=== PATIENT | female | born 2000 | race Caucasian/White ===

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

== ENCOUNTER 2021-02-24 13:07 | Emergency (ER) | payer MEDICAID ==
[~2021-02-24] VITALS: Ht 160 cm; Wt 63.7 kg
[2021-02-24 13:18] LABS: BILIRUBIN,URINE NEGATIVE (NEGATIVE); CLARITY,URINE TURBID; COLOR,URINE YELLOW; GLUCOSE, URINE (UA) NEGATIVE (NEGATIVE); KETONES,URINE NEGATIVE (NEGATIVE); LEUKOCYTE ESTERASE ,URINE NEGATIVE (NEGATIVE); NITRITE,URINE NEGATIVE (NEGATIVE); PROTEIN,URINE NEGATIVE (NEGATIVE)
[2021-02-24] MEDS ORDERED: NS IV 1000 ML 1,000 ML IV STA (13:22)
[2021-02-24] MEDS ORDERED: PANTOPRAZOLE 40 MG (PROTONIX) VIAL IV STA (13:22)
[2021-02-24] MEDS ORDERED: KETOROLAC 30 MG/ML VIAL IVP STA (13:22)
--- NOTE | 2021-02-24 13:28 | ED GI ---
General Chief Complaint: Abdominal/GI Problems Stated Complaint: LUNG PAIN; VOMITING Source of Information: Patient NPO Since: 9 am History of Present Illness Date Seen by Provider: Feb 24, 2021 Time Seen by Provider: 13:11 Initial Comments 20-year-old female presenting with complaints of intermittent nausea and vomiting since Monday. She states that she has seen coffee-ground appearing emesis. She denies black tarry stools. She last had a bowel movement yesterday and reports it was normal. She denies any diarrhea. She also reports tightness in her abdomen. She states that the tightness and pain seems to start around the area where she has a incision and then radiates or moves up her abdomen to the base of her lungs and chest. She states nothing seems to trigger the symptoms. They seem to happen randomly. She is still able to eat and drink. No certain foods or drinks trigger her symptoms. She last ate at 9 AM. She denies pain or burning with urination. She states she is having dark-colo red spotting and has some irregular periods but she does have the Nexplanon in her left arm for control. She had this implanted around December 2019 after her last delivery. She states she has not felt quite right since she had that implanted. Timing/Duration: 3-4 Days Severity/Quality: Moderate, Other (Tightness) Location: Generalized Abdomen Activities at Onset: None Associated Symptoms: No Back Pain, No Chest Pain, No Diaphoresis, No Fever/Chills, No Fatigue, No Headache, No Heartburn; Nausea/Vomiting; No Rash, No Shortness of Air, No Swelling/Mass in Abdomen, No Syncope, No Weakness Allergies and Home Medications Allergies Coded Allergies: No Known Drug Allergies (Unverified , 04/24/19) Patient Home Medication List Home Medication List Reviewed: Yes Dicyclomine HCl (Dicyclomine HCl) 10 Mg Capsule, 10 MG PO Q6H PRN for abdominal pain/nausea Prescribed by: SAMIRA SHEEHAN on 02/24/21 2614 Pantoprazole Sodium (Pantoprazole Sodium) 40 Mg Tablet.dr, 40 MG PO DAILY Prescribed by: SAMIRA SHEEHAN on 02/24/21 150 Review of Systems Review of Systems Constitutional: No chills, No diaphoresis; dizziness; No fever EENTM: No Blurred Vision, No Double Vision Respiratory: Denies Cough, Denies Shortness of Air Cardiovascular: Denies Chest Pain, Denies Palpitations Gastrointestinal: Denies Abdomen Distended; Abdominal Pain (Tight sensation in her abdomen); Denies Blood Streaked Stools, Denies Constipated, Denies Diarrhea, Denies Difficulty Swallowing; Nausea; Denies Poor Appetite, Denies Poor Fluid Intake, Denies Rectal Bleeding; Vomiting Genitourinary: Denies Burning, Denies Discharge, Denies Drainage, Denies Frequency, Denies Pain; Other (Spotting a dark-colored blood) Musculoskeletal: no symptoms reported Skin: no symptoms reported Psychiatric/Neurological: Anxiety Past Nfxvdwd-Mscacc-Ekcdid Hx Patient Social History Tobacco Use?: No Use of E-Cig and/or Vaping dev: No Substance use?: No Alcohol Use?: No Pt feels they are or have been: No Seasonal Allergies Seasonal Allergies: No Past Medical History Surgeries: Yes Section Respiratory: No Cardiac: No Neurological: No Genitourinary: No Gastrointestinal: No Musculoskeletal: No Endocrine: No HEENT: No Cancer: No Psychosocial: No Integumentary: No Blood Disorders: No Physical Exam Vital Signs Vital Signs - First Documented 02/24/21 13:10 Temp 36.3 Pulse 86 Resp 16 B/P (MAP) 132/88 (103) Pulse Ox 100 O2 Delivery Room Air Capillary Refill : Height/Weight/BMI Height: '" Weight: lbs. oz. kg; 31.00 BMI Method: General Appearance: WD/WN, no apparent distress HEENT: PERRL/EOMI, normal ENT inspection, pharynx normal Neck: non-tender, full range of motion, supple, normal inspection Respiratory: chest non-tender, lungs clear, normal breath sounds Cardiovascular: normal peripheral pulses, regular rate, rhythm Gastrointestinal: soft, no pulsatile mass, abnormal bowel sounds (Hypoactive); No distended, No guarding, No rebound; tenderness (Patient reports tightness in her abdomen with even light palpation. This is diffuse throughout her abdomen); No hernia, No mass Rectal: deferred Extremities: normal range of motion, non-tender, no calf tenderness, normal capillary refill Neurologic/Psychiatric: overseamer II-XII nml as tested, alert, oriented x 3 Skin: normal color, warm/dry Images 1 - Diffuse abdomen tenderness to palpation that is described as tightness by the patient. Progress/Results/Core Measures Results/Orders Lab Results Laboratory Tests Test 02/24/21 13:10 02/24/21 13:25 Range/Units Urine Color YELLOW Urine Clarity TURBID Urine pH 8.0 5-9 Urine Specific [place] 1.020 1.016-1.022 Urine Protein NEGATIVE NEGATIVE Urine Glucose (UA) NEGATIVE NEGATIVE Urine Ketones NEGATIVE NEGATIVE Urine Nitrite NEGATIVE NEGATIVE Urine Bilirubin NEGATIVE NEGATIVE Urine Urobilinogen 0.2 < = 1.0 MG/DL Urine Leukocyte Esterase NEGATIVE NEGATIVE Urine RBC (Auto) NEGATIVE NEGATIVE Urine RBC NONE /HPF Urine WBC RARE /HPF Urine Squamous Epithelial Cells 2-5 /HPF Urine Crystals PRESENT H /LPF Urine Amorphous Sediment LARGE SYDNIE PHOSPHATE H /LPF Urine Bacteria NEGATIVE /HPF Urine Casts NONE /LPF Urine Mucus NEGATIVE /LPF Urine Culture Indicated NO White Blood Count 8.5 4.3-11.0 10^3/uL Red Blood Count 5.04 3.80-5.11 10^6/uL Hemoglobin 14.1 11.5-16.0 g/dL Hematocrit 42 35-52 % Mean Corpuscular Volume 84 80-99 fL Mean Corpuscular Hemoglobin 28 25-34 pg Mean Corpuscular Hemoglobin Concent 33 32-36 g/dL Red Cell Distribution Width 13.5 10.0-14.5 % Platelet Count 212 130-400 10^3/uL Mean Platelet Volume 10.8 9.0-12.2 fL Immature Granulocyte % (Auto) 1 % Neutrophils (%) (Auto) 56 42-75 % Lymphocytes (%) (Auto) 34 12-44 % Monocytes (%) (Auto) 7 0-12 % Eosinophils (%) (Auto) 2 0-10 % Basophils (%) (Auto) 1 0-10 % Neutrophils # (Auto) 4.8 1.8-7.8 X 10^3 Lymphocytes # (Auto) 2.9 1.0-4.0 X 10^3 Monocytes # (Auto) 0.6 0.0-1.0 X 10^3 Eosinophils # (Auto) 0.2 0.0-0.3 10^3/uL Basophils # (Auto) 0.1 0.0-0.1 10^3/uL Immature Granulocyte # (Auto) 0.1 0.0-0.1 10^3/uL Sodium Level 141 135-145 MMOL/L Potassium Level 3.8 3.6-5.0 MMOL/L Chloride Level 104 98-107 MMOL/L Carbon Dioxide Level 22 21-32 MMOL/L Anion Gap 15 H 5-14 MMOL/L Blood Urea Nitrogen 12 7-18 MG/DL Creatinine 0.75 0.60-1.30 MG/DL Estimat Glomerular Filtration Rate 99 BUN/Creatinine Ratio 16 Glucose Level 100 70-105 MG/DL Calcium Level 10.0 8.5-10.1 MG/DL Corrected Calcium 9.6 8.5-10.1 MG/DL Total Bilirubin 0.3 0.1-1.0 MG/DL Aspartate Amino Transf (AST/SGOT) 14 5-34 U/L Alanine Aminotransferase (ALT/SGPT) 14 0-55 U/L Alkaline Phosphatase 148 H 40-136 U/L Total Protein 6.9 6.4-8.2 GM/DL Albumin 4.5 3.2-4.5 GM/DL Lipase 19 8-78 U/L My Orders Orders - SAMIRA SHEEHAN MD Urine Bedside (02/24/21 13:12) Ua Culture If Indicated (02/24/21 13:12) Comprehensive Metabolic Panel (02/24/21 13:21) Lipase (02/24/21 13:21) Ed Iv/Invasive Line Start (02/24/21 13:21) Cbc With Automated Diff (02/24/21 13:21) Ct Abdomen/Pelvis W (02/24/21 13:21) Ns Iv 1000 Ml (Sodium Chloride 0.9%) (02/24/21 13:22) Pantoprazole Injection (Protonix Injecti (02/24/21 13:22) Ketorolac Injection (Toradol Injection) (02/24/21 13:22) Iohexol Injection (Omnipaque 350 Mg/Ml 1 (02/24/21 13:30) Received Contrast (Hold Metformin- Contr (02/24/21 13:30) Sodium Chloride Flush (Catheter Flush Sy (02/24/21 13:30) Ns (Ivpb) (Sodium Chloride 0.9% Ivpb Bag (02/24/21 13:30) Medications Given in ED Current Medications Medications Dose Ordered Sig/Johny Route Start Time Stop Time Status Last Admin Dose Admin Iohexol 100 ml ONCE ONCE IV 02/24/21 13:30 02/24/21 13:31 DC 02/24/21 13:44 75 ML Sodium Chloride 10 ml NEEDED PRN IV 02/24/21 13:30 02/24/21 15:45 DC 02/24/21 13:44 10 ML Sodium Chloride 100 ml ONCE ONCE IV 02/24/21 13:30 02/24/21 13:31 DC 02/24/21 13:44 80 ML Vital Signs/I&O 02/24/21 02/24/21 13:10 15:43 Temp 36.3 36.3 Pulse 86 68 Resp 16 16 B/P (MAP) 132/88 (103) 109/64 Pulse Ox 100 100 O2 Delivery Room Air Room Air Progress Progress Note #1: Progress Note + Urine test was negative. Check urinalysis as well as basic labs and lipase. Give IV fluids for hydration, pantoprazole in case there is any ulcer or gastritis with patient complaining of coffee-ground emesis. Try a dose of Toradol for tightness in her abdomen. Obtain a CT scan of the abdomen pelvis to evaluate for acute pathology such as perforated ulcer, abdominal mass, colitis, diverticulitis, bowel obstruction, gastroenteritis. Progress Note #2: Time: 14:21 Progress Note Urine was negative and UA showed some crystals but no sign of infection. CBC without acute significant abnormality. Chemistry and Lipase will be delayed due to having to send specimens to [facility] with the machine here in [place] having technical difficulties. CT scan showed a pericardial cyst, normal appendix with several small lymph nodes around the cecum for possible mesenteric adenitis. No obstruction or bl ockage. Nothing specific to account for her symptoms. Patient may need to follow a liquid diet for 24 to 48 hours and try some bentyl and acid reducing medicine. Then follow up with pcp to see about possible endoscopy to evaluate stomach/colon if continued problems/concerns. Progress Note #3: Time: 14:53 Progress Note Chemistry and Lipase do not show acute significant abnormality to account for her symptoms. Other than pericardial cyst and some mildly enlarged mesenteric lymph nodes she does not have any acute pathology on the CT scan and nothing that would account for her symptoms of tightness and n/v. Will again, proceed with plan as above of liquid diet for 24 to 48 hours, check back with pcp and may need endoscopy, bentyl for tightness and nausea, pantoprazole for possible gastritis. After patient was discharged, the pharmacy called back stating that patient had just filled omeprazole 3 days prior. Counseled the she could either stick with the omeprazole or switch to the pantoprazole as long as she was taking a proton pump inhibitor. She would not have to fill the new prescription from today if she wants to just continue on the omeprazole. Diagnostic Imaging Diagonstic Imaging: CT Plain Films/CT/US/NM/MRI: abdomen, pelvis Comments [facility]. [place], [place] NAME: MARGA SIMS [facility] REC#: [id number] PT STATUS: REG ER : 2000 PHYSICIAN: SAMIRA SHEEHAN MD ADMIT DATE: 02/24/21/ER FS Draft Date of Exam:02/24/21 CT ABDOMEN/PELVIS W CLINICAL INDICATION: Patient with nausea, vomiting, and abdominal tightness since Monday. EXAM: Axial CT scan of the abdomen and pelvis performed with 75 mL of Omnipaque 350 IV contrast. Sagittal and coronal reformatted images were created. Auto Exposure Controls were utilized during the CT exam to meet ALARA standards for radiation dose reduction. COMPARISON: None. FINDINGS: The visualized lung bases are clear. Likely bone island within the medial posterior left iliac crest. Bones show no other significant abnormality. There is a 5.2 cm x 1.7 cm x 4.2 cm fluid-density lobulated area seen in the right cardiophrenic angle and along the right heart border region most likely representing a pericardial cyst. The liver, spleen, pancreas, gallbladder, and adrenal glands are unremarkable. There is a 5 mm cortical cyst involving the mid portion of the right kidney. Otherwise, both kidneys are unremarkable. There is no hydronephrosis, mass, or stones. The bladder is partially fluid filled and unremarkable. The uterus and bilateral adnexal regions show no significant abnormality. Likely multiple bilateral ovarian follicles and/or cysts noted. Phleboliths are seen in the pelvis. There is no intra-abdominal free air or free fluid. The stomach is moderately fluid and debris distended. There is no gastric wall abnormality seen. There is decompressed appearance with wall thickening involving the duodenum, which may be related to contraction. Otherwise, the duodenum, jejunum, and ileum show no significant abnormality. There are multiple lymph nodes measuring less than 1 cm in short axis in the right pericecal region and mesenteric region. Largest measurable lymph node in the right pericecal region measures 10 mm x 6 mm. The sigmoid colon and left colon are decompressed. There is a oinvf-ip-ioddkbka amount of stool within the proximal transverse colon and ascending colon. Terminal ileum and appendix are unremarkable. The extra-abdominal and extrapelvic soft tissue structures are unremarkable. There is no intestinal obstruction. IMPRESSION: 1: There are multiple small lymph nodes in the mesenteric region and pericecal region. These findings may be related to mesenteric adenitis. There is wall thickening and decompressed appearance of the jejunum, which may be related to contraction. Otherwise, there is no significant intestinal abnormality seen. 2: The appendix is unremarkable, and terminal ileum is unremarkable. There is a ljzkr-ua-eocknqld amount of stool involving the right colon. 3: There is a small to moderate-sized right-sided pericardial cyst. 4: The remainder of this exam is unremarkable. Dictated on workstation # [id number] Dict: 02/24/21 1352 Trans: 02/24/21 1405 [id number] Interpreted by: CRISTIAN RAY MD Electronically signed by: Departure Impression Primary Impression: Nausea and vomiting Qualified Codes: R11.2 - Nausea with vomiting, unspecified Additional Impressions: Abdominal tightness Mesenteric adenitis Disposition: 01 HOME, SELF-CARE Condition: Stable Departure-Patient Inst. Decision time for Depature: 15:33 Referrals: RAZA GAXIOLA MD (PCP/Family) Primary Care Physician Patient Instructions: Abdominal Pain, Adult ED, Full Liquid Diet, Mesenteric Lymphadenitis (DC), Nausea and Vomiting, Adult ED Add. Discharge Instructions: Follow a liquid diet for 24 to 48 hours to help let your stomach and gut rest. Try using Bentyl (Dicyclomine) for nausea and abdominal tightness/pain. Take Pantoprazole (Protonix) for stomach irritation and coffee ground appearing vomit. Check back with Dr. Gaxiola for continued symptoms/problems as you may need a scope to look for stomach ulcer or irritation, or look at lining of colon to see if there is inflammation or issue causing your symptoms. There were some small lymph nodes that were slightly enlarged in the abdomen that are non specific and could be related to a viral infection, inflammation of intestines, or if continued and worsening symptoms may warrant having additional testing to look and see if there is anything changed in the colon. As an incidental finding you have a small pericardial cyst. A fluid collection in the sac surrounding your heart that has been present since but only seen now because of the CT scan. It would not be causing your symptoms, but was only seen because of the scan being done. These are benign and do not require anything to be done with them. All discharge instructions reviewed with patient and/or family. Voiced understanding. Scripts Pantoprazole Sodium (Pantoprazole Sodium) 40 Mg Tablet.dr 40 MG PO DAILY for gastritis for 30 Days, #30 TAB 0 Refills Prov: SAMIRA SEHEHAN MD 02/24/21 Dicyclomine HCl (Dicyclomine HCl) 10 Mg Capsule 10 MG PO Q6H PRN for abdominal pain/nausea for 5 Days, #20 CAP 0 Refills Prov: SAMIRA SHEEHAN MD 02/24/21 SAMIRA SHEEHAN MD Feb 24, 2021 13:28
[2021-02-24 13:30] LABS: AMORPHOUS SEDIMENT,UR LARGE AMOR PHOSPHATE /LPF; BACTERIA,URINE NEGATIVE /HPF; WBC,URINE RARE /HPF
[2021-02-24] MEDS ORDERED: NS 100 ML (IVPB) BAG IV ONE (13:30)
[2021-02-24] MEDS ORDERED: IOHEXOL 350 MG/ML 100 ML (OMNIPAQUE 350) VIAL IV ONE (13:30)
[2021-02-24] MEDS ORDERED: HOLD METFORMIN - RECEIVED CONTRAST 20 ML VIAL IV SCH (13:30)
[2021-02-24] MEDS ORDERED: CATHETER FLUSH 10 ML SYR IV PRN (13:30)
[2021-02-24 13:55] LABS: HEMATOCRIT 42 % (35-52); HEMOGLOBIN 14.1 g/dL (11.5-16.0); MEAN CORPUSCULAR HEMOGLOBIN 28 pg (25-34); MEAN CORPUSCULAR HGB CONC 33 g/dL (32-36); MEAN CORPUSCULAR VOLUME 84 fL (80-99); WHITE BLOOD COUNT 8.5 10^3/uL (4.3-11.0)
[2021-02-24 13:56] LABS: BASOPHILS # (AUTO) 0.1 10^3/uL (0.0-0.1); BASOPHILS % (AUTO) 1 % (0-10); EOSINOPHILS # (AUTO) 0.2 10^3/uL (0.0-0.3); EOSINOPHILS % (AUTO) 2 % (0-10); LYMPHOCYTES # (AUTO) 2.9 X 10^3 (1.0-4.0); LYMPHOCYTES % (AUTO) 34 % (12-44); MEAN PLATELET VOLUME 10.8 fL (9.0-12.2); MONOCYTES # (AUTO) 0.6 X 10^3 (0.0-1.0); MONOCYTES % (AUTO) 7 % (0-12); NEUTROPHILS # (AUTO) 4.8 X 10^3 (1.8-7.8); NEUTROPHILS % (AUTO) 56 % (42-75); PLATELET COUNT 212 10^3/uL (130-400)
--- NOTE | 2021-02-24 14:06 | Diagnostic Imaging Report ---
CLINICAL INDICATION: Patient with nausea, vomiting, and abdominal tightness since Monday. EXAM: Axial CT scan of the abdomen and pelvis performed with 75 mL of Omnipaque 350 IV contrast. Sagittal and coronal reformatted images were created. Auto Exposure Controls were utilized during the CT exam to meet ALARA standards for radiation dose reduction. COMPARISON: None. FINDINGS: The visualized lung bases are clear. Likely bone island within the medial posterior left iliac crest. Bones show no other significant abnormality. There is a 5.2 cm x 1.7 cm x 4.2 cm fluid-density lobulated area seen in the right cardiophrenic angle and along the right heart border region most likely representing a pericardial cyst. The liver, spleen, pancreas, gallbladder, and adrenal glands are unremarkable. There is a 5 mm cortical cyst involving the mid portion of the right kidney. Otherwise, both kidneys are unremarkable. There is no hydronephrosis, mass, or stones. The bladder is partially fluid filled and unremarkable. The uterus and bilateral adnexal regions show no significant abnormality. Likely multiple bilateral ovarian follicles and/or cysts noted. Phleboliths are seen in the pelvis. There is no intra-abdominal free air or free fluid. The stomach is moderately fluid and debris distended. There is no gastric wall abnormality seen. There is decompressed appearance with wall thickening involving the duodenum, which may be related to contraction. Otherwise, the duodenum, jejunum, and ileum show no significant abnormality. There are multiple lymph nodes measuring less than 1 cm in short axis in the right pericecal region and mesenteric region. Largest measurable lymph node in the right pericecal region measures 10 mm x 6 mm. The sigmoid colon and left colon are decompressed. There is a qzzgp-wb-reevqbyn amount of stool within the proximal transverse colon and ascending colon. Terminal ileum and appendix are unremarkable. The extra-abdominal and extrapelvic soft tissue structures are unremarkable. There is no intestinal obstruction. IMPRESSION: 1: There are multiple small lymph nodes in the mesenteric region and pericecal region. These findings may be related to mesenteric adenitis. There is wall thickening and decompressed appearance of the jejunum, which may be related to contraction. Otherwise, there is no significant intestinal abnormality seen. 2: The appendix is unremarkable, and terminal ileum is unremarkable. There is a nxigt-ys-jgvekxuk amount of stool involving the right colon. 3: There is a small to moderate-sized right-sided pericardial cyst. 4: The remainder of this exam is unremarkable. Dictated by: Dictated on workstation # [id number]
[2021-02-24 14:50] LABS: BILIRUBIN,TOTAL 0.3 MG/DL (0.1-1.0); CREATININE SERUM 0.75 MG/DL (0.60-1.30); POTASSIUM 3.8 MMOL/L (3.6-5.0)
[2021-02-24 14:51] LABS: ALBUMIN 4.5 GM/DL (3.2-4.5); TOTAL PROTEIN 6.9 GM/DL (6.4-8.2)
[2021-02-24] MEDS ORDERED: DICY10CA12 PO (15:08)
[2021-02-24] MEDS ORDERED: PANT40TA52 PO (15:08)
[2021-02-24 15:43] VITALS: BP 109/64
== END 2021-02-24 15:45 | disposition home or self-care (01) ==
LOC: EDUNIT# 13:07 → ER FS 13:09
DX: R11.2 Nausea with vomiting, unspecified (principal); I88.0 Nonspecific mesenteric lymphadenitis
CPT/HCPCS: 36415; 74177; 80053; 81000; 83690; 84703; 85025

== ENCOUNTER 2022-02-28 09:22 | Emergency (ER) | payer MEDICAID ==
[~2022-02-28] VITALS: Ht 160 cm; Wt 65.8 kg
[~2022-02-28 09:22] MED LIST: DICY10CA12 PO; PANT40TA52 PO
[2022-02-28] MEDS ORDERED: NS IV 1000 ML 1,000 ML IV STA (09:51)
[2022-02-28] MEDS ORDERED: KETOROLAC 15 MG/ML VIAL IVP STA (09:51)
--- NOTE | 2022-02-28 09:56 | ED Upper Extremity ---
General Stated Complaint: ELEV BP Source: patient History of Present Illness Date Seen by Provider: Feb 28, 2022 Time Seen by Provider: 09:29 Allergies and Home Medications Allergies Coded Allergies: No Known Drug Allergies (Unverified , 04/24/19) Patient Home Medication List Dicyclomine HCl (Dicyclomine HCl) 10 Mg Capsule, 10 MG PO Q6H PRN for abdominal pain/nausea Prescribed by: SAMIRA SHEEHAN on 02/24/21 1508 Pantoprazole Sodium (Pantoprazole Sodium) 40 Mg Tablet.dr, 40 MG PO DAILY Prescribed by: SAMIRA SHEEHAN on 02/24/21 1508 Past Yscfjzi-Huvkhy-Iqfhua Hx Seasonal Allergies Seasonal Allergies: No Past Medical History Surgeries: Yes Section Respiratory: No Cardiac: No Neurological: No Genitourinary: No Gastrointestinal: No Musculoskeletal: No Endocrine: No HEENT: No Cancer: No Psychosocial: No Integumentary: No Blood Disorders: No Physical Exam Vital Signs Capillary Refill : Height, Weight, BMI Height: '" Weight: lbs. oz. kg; 24.00 BMI Method: Progress/Results/Core Measures Results/Orders My Orders Orders - SAMIRA SHEEHAN MD Cbc With Automated Diff (02/28/22 09:50) Magnesium (02/28/22 09:50) Ekg Tracing (02/28/22 09:50) Comprehensive Metabolic Panel (02/28/22 09:50) Protime With Inr (02/28/22 09:50) Partial Thromboplastin Time (02/28/22 09:50) Monitor-Rhythm Ecg Trace Only (02/28/22 09:50) Ed Iv/Invasive Line Start (02/28/22 09:50) Lipase (02/28/22 09:50) Troponin I Fs (02/28/22 09:50) Probnp Fs (02/28/22 09:50) Chest Pa/Lat (2 View) (02/28/22 09:50) Ct Head Wo (02/28/22 09:50) Ns Iv 1000 Ml (Sodium Chloride 0.9%) (02/28/22 09:51) Ketorolac Injection (Toradol Injection) (02/28/22 09:51) Departure Departure-Patient Inst. Referrals: RAZA GAXIOLA MD (PCP) Primary Care Physician SAMIRA SHEEHAN MD Feb 28, 2022 09:56
--- NOTE | 2022-02-28 10:00 | ED General ---
General Stated Complaint: ELEV BP Source of Information: Patient History of Present Illness Date Seen by Provider: Feb 28, 2022 Time Seen by Provider: 09:29 Initial Comments 21-year-old female presenting with concerns for elevated blood pressure. She states that she has not felt well since of last week. She had gone to the [facility] and they were concerned about her blood pressure and gave her a monitor to check her pressures at home. She reports that her pressures were in the 130s over 100 and she has had a headache with dizziness. 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 Now she is having blood pressure problems and this morning she had a nosebleed. She is concerned that her blood pressures are too high and came to the emergency department. She denies having any blurred or change in vision, chest pain, shortness of breath, cough, numbness or weakness in her arms or legs. Timing/Duration: 4-5 Days Severity: Moderate Modifying Factors: worse with Movement (Activity seems to make her headache and dizziness worse) Associated Systoms: No Chest Pain, No Cough, No Diaphoresis, No Fever/Chills; Headaches; No Loss of Appetite; Malaise, Nausea/Vomiting (Nausea but no vomiting); No Rash, No Seizure, No Shortness of Air, No Syncope, No Weakness Allergies and Home Medications Allergies Coded Allergies: No Known Drug Allergies (Unverified , 04/24/19) Patient Home Medication List Home Medication List Reviewed: Yes Dicyclomine HCl (Dicyclomine HCl) 10 Mg Capsule, 10 MG PO Q6H PRN for abdominal pain/nausea Prescribed by: SAMIRA SHEEHAN on 02/24/21 1508 Pantoprazole Sodium (Pantoprazole Sodium) 40 Mg Tablet.dr, 40 MG PO DAILY Prescribed by: SAMIRA SHEEHAN on 02/24/21 1504 Review of Systems Review of Systems Constitutional: No chills; dizziness; No fever EENTM: No nose congestion, No throat pain Respiratory: No cough, No short of breath Cardiovascular: No chest pain Gastrointestinal: nausea; No vomiting Genitourinary: No dysuria Musculoskeletal: no symptoms reported Skin: No rash Psychiatric/Neurological: Headache; Denies Numbness, Denies Paresthesia, Denies Weakness Past [place]-Eviyoq-Gooflu Hx Patient Social History Tobacco Use?: No Use of E-Cig and/or Vaping dev: No Substance use?: No Alcohol Use?: No Seasonal Allergies Seasonal Allergies: No Past Medical History Surgeries: Yes Section Respiratory: No Cardiac: No Neurological: No Genitourinary: No Gastrointestinal: No Musculoskeletal: No Endocrine: No HEENT: No Cancer: No Psychosocial: No Integumentary: No Blood Disorders: No Physical Exam Vital Signs Vital Signs - First Documented 02/28/22 09:37 Temp 36.4 Pulse 88 Resp 20 B/P (MAP) 130/87 (101) O2 Delivery Room Air Capillary Refill : Height, Weight, BMI Height: '" Weight: lbs. oz. kg; 24.00 BMI Method: General Appearance: No Apparent Distress, WD/WN, Anxious HEENT: PERRL/EOMI, Normal ENT Inspection, Pharynx Normal, Moist Mucous Membr anes Neck: Full Range of Motion, Normal Inspection, Non Tender, Supple Respiratory: Chest Non Tender, Lungs Clear, Normal Breath Sounds, No Accessory Muscle Use, No Respiratory Distress Cardiovascular: Regular Rate, Rhythm, Normal Peripheral Pulses Gastrointestinal: Normal Bowel Sounds, No Pulsatile Mass, Non Tender, Soft Rectal: Deferred Extremity: Normal Capillary Refill, Normal Inspection, No Pedal Edema Neurologic/Psychiatric: Alert, Oriented x3, No Motor/Sensory Deficits, 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- XII Norm as Tested, Other (Anxious) Skin: Normal Color, Warm/Dry; No Rash Progress/Results/Core Measures Suspected Sepsis SIRS Temperature: Pulse: Respiratory Rate: Laboratory Tests 02/28/22 09:58: White Blood Count 9.0 Blood Pressure / Mean: Laboratory Tests 02/28/22 09:58: Creatinine 0.68, INR Comment 1.0, Platelet Count 225, Total Bilirubin 0.4 Results/Orders Lab Results Laboratory Tests Test 02/28/22 09:58 Range/Units White Blood Count 9.0 4.3-11.0 10^3/uL Red Blood Count 4.95 3.80-5.11 10^6/uL Hemoglobin 13.9 11.5-16.0 g/dL Hematocrit 41 35-52 % Mean Corpuscular Volume 83 80-99 fL Mean Corpuscular Hemoglobin 28 25-34 pg Mean Corpuscular Hemoglobin Concent 34 32-36 g/dL Red Cell Distribution Width 13.7 10.0-14.5 % Platelet Count 225 130-400 10^3/uL Mean Platelet Volume 10.8 9.0-12.2 fL Immature Granulocyte % (Auto) 1 % Neutrophils (%) (Auto) 65 42-75 % Lymphocytes (%) (Auto) 27 12-44 % Monocytes (%) (Auto) 6 0-12 % Eosinophils (%) (Auto) 1 0-10 % Basophils (%) (Auto) 1 0-10 % Neutrophils # (Auto) 5.8 1.8-7.8 10^3/uL Lymphocytes # (Auto) 2.5 1.0-4.0 10^3/uL Monocytes # (Auto) 0.5 0.0-1.0 10^3/uL Eosinophils # (Auto) 0.1 0.0-0.3 10^3/uL Basophils # (Auto) 0.1 0.0-0.1 10^3/uL Immature Granulocyte # (Auto) 0.1 0.0-0.1 10^3/uL Prothrombin Time 13.7 12.2-14.7 SEC INR Comment 1.0 0.8-1.4 Activated Partial Thromboplast Time 27 24-35 SEC Sodium Level 139 135-145 MMOL/L Potassium Level 4.2 3.6-5.0 MMOL/L Chloride Level 106 98-107 MMOL/L Carbon Dioxide Level 22 21-32 MMOL/L Anion Gap 11 5-14 MMOL/L Blood Urea Nitrogen 12 7-18 MG/DL Creatinine 0.68 0.60-1.30 MG/DL Estimat Glomerular Filtration Rate 127 BUN/Creatinine Ratio 18 Glucose Level 108 H 70-105 MG/DL Calcium Level 9.5 8.5-10.1 MG/DL Corrected Calcium 9.1 8.5-10.1 MG/DL Magnesium Level 1.8 1.6-2.4 MG/DL Total Bilirubin 0.4 0.1-1.0 MG/DL Aspartate Amino Transf (AST/SGOT) 17 5-34 U/L Alanine Aminotransferase (ALT/SGPT) 15 0-55 U/L Alkaline Phosphatase 154 H 40-136 U/L Troponin I < 0.30 <0.30 NG/ML Pro-B-Type Natriuretic Peptide 12.8 <125.0 PG/ML Total Protein 7.4 6.4-8.2 GM/DL Albumin 4.5 3.2-4.5 GM/DL Lipase 15 8-78 U/L My Orders Orders - SAMIRA SHEEHAN MD Cbc With Automated Diff (02/28/22 09:50) Magnesium (02/28/22 09:50) Ekg Tracing (02/28/22 09:50) Comprehensive Metabolic Panel (02/28/22 09:50) Protime With Inr (02/28/22:50) Partial Thromboplastin Time (02/28/22:50) Monitor-Rhythm Ecg Trace Only (02/28/22:50) Ed Iv/Invasive Line Start (02/28/22 09:50) Lipase (02/28/22 09:50) Troponin I Fs (02/28/22:50) Probnp Fs (02/28/22 09:50) Chest Pa/Lat (2 View) (02/28/22 09:50) Ct Head Wo (02/28/22 09:50) Ns Iv 1000 Ml (Sodium Chloride 0.9%) (02/28/22 09:51) Ketorolac Injection (Toradol Injection) (02/28/22 09:51) Vital Signs/I&O 02/28/22 09:37 Temp 36.4 Pulse 88 Resp 20 B/P (MAP) 130/87 (101) O2 Delivery Room Air Capillary Refill : Progress Note #1: Progress Note Obtain basic labs and blood work as well as order CT scan of the head to evaluate for possible mass, stroke, bleeding, sinusitis. Chest x-ray two-view to evaluate for enlargement or changing of the pericardial cyst seen on CT scan February 2021. Give normal saline 1 L IV fluid bolus for hydration, Toradol for headache. 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 Electrocardiogram to evaluate for possible arrhythmia or acute ischemic changes. Progress Note #2: Progress Note CBC is stable without acute significant abnormality. She has a normal white blood cell count of 9 and a normal hemoglobin of 13.9. Her chemistry panel did not have acute significant abnormality either. She had mild elevation of her glucose to 108. Troponin and proBNP are both normal and neither of them are elevated. Two-view chest x-ray does not show any acute process. She has no obvious mass or enlargement of the heart. Her CT scan of the head was not showing any acute process. Her blood pressure while in the ED has been as low as 97 for the systolic number and has been running in the 110s to 120s primarily. ECG does not show acute ischemic changes or concerning findings. Reassured patient and encouraged to check with clinic for follow up. With her BP coming down on its own and patient reporting she still has headache and dizziness this may be due to more of a viral illness or other issue than blood pressure as she is not hypertensive to be causing these complaints. Encourage fluids and hydration as well as frequent small meals to help keep sugar even. Check with clinic to see if they feel additional treatment/testing is indicated. ECG Initial ECG Impression Date: Feb 28, 2022 Initial ECG Impression Time: 10:08 Initial ECG Rate: 57 Initial ECG Rhythm: Normal Sinus Initial ECG Comparisson: No Previous ECG Available Comment Sinus rhythm with a heart rate of 57 bpm. There is occasional supraventricular premature complexes. MT interval 139 ms. QT interval 411 ms with a QTc interval 405 ms. She has no acute ST elevation. There is no prior tracing available for comparison. I personally reviewed and interpreted her electrocardiogram. Diagnostic Imaging Diagonstic Imaging: Xray Plain Films/CT/US/NM/MRI: chest Comments [id number] [place], [place] NAME: SIMSMARGA CALLAHAN [facility] REC#: [id number] PT STATUS: REG ER : 2000 PHYSICIAN: SAMIRA SHEEHAN MD ADMIT DATE: 02/28/22/ER FS Draft Date of Exam:02/28/22 CHEST PA/LAT (2 VIEW) INDICATION: Hypertension. FINDINGS: PA and lateral views. The lungs are well aerated and clear. The heart is not enlarged. No pneumothorax or pleural effusion. No bony abnormalities. IMPRESSION: Normal PA and lateral chest. Dictated on workstation # [id number] Dict: 02/28/22 1032 Trans: 02/28/22 1053 [id number] Interpreted by: LENA RICO MD Electronically signed by: Diagonstic Imaging: CT Plain Films/CT/US/NM/MRI: head Comments [id number] [place], [place] NAME: MARGA SIMS [facility] REC#: [id number] PT STATUS: DEP ER : 2000 PHYSICIAN: SAMIRA SHEEHAN MD ADMIT DATE: 02/28/22/ER FS Signed Date of Exam:02/28/22 CT HEAD WO PROCEDURE: CT head without contrast. TECHNIQUE: Multiple contiguous axial images were obtained through the brain without the use of intravenous contrast. Auto Exposure Controls were utilized during the CT exam to meet ALARA standards for radiation dose reduction. INDICATION: Hypertension and epistaxis with dizziness, headache, and nausea. FINDINGS: The ventricles and sulci are within normal limits for size. There is no intracranial hemorrhage identified. There is no abnormal mass effect or shift of midline structures. IMPRESSION: Unremarkable CT of the head. Dictated by: Dictated on workstation # [id number] Dict: 02/28/22 1035 Trans: 02/28/22 1201 [id number] Interpreted by: RAH JEROME MD Electronically signed by: RAH JEROME MD 02/28/22 1201 Reviewed: Reviewed by Me Departure Impression Primary Impression: Labile blood pressure Disposition: 01 HOME, SELF-CARE Condition: Stable Departure-Patient Inst. Decision time for Depature: 11:06 Referrals: RAZA GAXIOLA MD (PCP) Primary Care Physician [facility] Patient Instructions: Checking Your Blood Pressure at Home, Lowering Your Risk of High Blood Pressure Add. Discharge Instructions: Your blood work, EKG, chest xray, and CT scan of head all were normal today and not showing concerning changes or findings. Keep track of your blood pressures and work with [facility] or Dr. Gaxiola to follow up and see if they feel you need additional testing or any prescription medicines. Work/School Note: Family Work Note Patient Received Medical Care In the Emergency Department On: Feb 28, 2022 Patient Will Be Able to Return to Work/School On: Mar 01, 2022 SAMIRA SHEEHAN MD Feb 28, 2022 10:00
[2022-02-28 10:04] LABS: BASOPHILS # (AUTO) 0.1 10^3/uL (0.0-0.1); BASOPHILS % (AUTO) 1 % (0-10); EOSINOPHILS # (AUTO) 0.1 10^3/uL (0.0-0.3); EOSINOPHILS % (AUTO) 1 % (0-10); HEMATOCRIT 41 % (35-52); HEMOGLOBIN 13.9 g/dL (11.5-16.0); LYMPHOCYTES # (AUTO) 2.5 10^3/uL (1.0-4.0); LYMPHOCYTES % (AUTO) 27 % (12-44); MEAN CORPUSCULAR HEMOGLOBIN 28 pg (25-34); MEAN CORPUSCULAR HGB CONC 34 g/dL (32-36); MEAN CORPUSCULAR VOLUME 83 fL (80-99); MEAN PLATELET VOLUME 10.8 fL (9.0-12.2); MONOCYTES # (AUTO) 0.5 10^3/uL (0.0-1.0); MONOCYTES % (AUTO) 6 % (0-12); NEUTROPHILS # (AUTO) 5.8 10^3/uL (1.8-7.8); NEUTROPHILS % (AUTO) 65 % (42-75); PLATELET COUNT 225 10^3/uL (130-400)
[2022-02-28 10:19] LABS: PROTHROMBIN TIME PATIENT 13.7 SEC (12.2-14.7)
--- NOTE | 2022-02-28 10:37 | Diagnostic Imaging Report ---
PROCEDURE: CT head without contrast. TECHNIQUE: Multiple contiguous axial images were obtained through the brain without the use of intravenous contrast. Auto Exposure Controls were utilized during the CT exam to meet ALARA standards for radiation dose reduction. INDICATION: Hypertension and epistaxis with dizziness, headache, and nausea. FINDINGS: The ventricles and sulci are within normal limits for size. There is no intracranial hemorrhage identified. There is no abnormal mass effect or shift of midline structures. IMPRESSION: Unremarkable CT of the head. Dictated by: Dictated on workstation # [id number]
[2022-02-28 10:45] LABS: POTASSIUM 4.2 MMOL/L (3.6-5.0)
[2022-02-28 10:46] LABS: ALBUMIN 4.5 GM/DL (3.2-4.5); BILIRUBIN,TOTAL 0.4 MG/DL (0.1-1.0); CALCIUM 9.5 MG/DL (8.5-10.1); CREATININE SERUM 0.68 MG/DL (0.60-1.30); MAGNESIUM 1.8 MG/DL (1.6-2.4); TOTAL PROTEIN 7.4 GM/DL (6.4-8.2)
--- NOTE | 2022-02-28 10:54 | Diagnostic Imaging Report ---
INDICATION: Hypertension. FINDINGS: PA and lateral views. The lungs are well aerated and clear. The heart is not enlarged. No pneumothorax or pleural effusion. No bony abnormalities. IMPRESSION: Normal PA and lateral chest. Dictated by: Dictated on workstation # [id number]
[2022-02-28 11:15] VITALS: BP 127/67
== END 2022-02-28 11:25 | disposition home or self-care (01) ==
LOC: EDUNIT# 09:22 → ER FS 09:23
DX: R09.89 Other specified symptoms and signs involving the circulatory and respiratory systems (principal); R51.9 Headache, unspecified; R73.9 Hyperglycemia, unspecified; R42 Dizziness and giddiness; Z28.310 Unvaccinated for COVID-19
CPT/HCPCS: 36415; 70450; 71046; 80053; 83690; 83735; 83880; 84484; 85025; 85610; 85730; 93005; 93041; 96361; 96374

== ENCOUNTER 2022-04-12 06:47 | Emergency (ER) | payer MEDICAID ==
[~2022-04-12] VITALS: Ht 165 cm; Wt 63.0 kg
--- NOTE | 2022-04-12 07:12 | ED Cardiac General ---
History of Present Illness General Stated Complaint: HEART PALPITATIONS Source: patient, EMS, old records Exam Limitations: no limitations History of Present Illness Date Seen by Provider: Apr 12, 2022 Time Seen by Provider: 07:00 Initial Comments 21-year-old female with past medical history of hypertension coming in via EMS due to palpitations. She states that been ongoing for over a month, she seen numerous physicians for her, and is supposed to have a referral to a c ardiologist here in the next week or so. She has never had a Holter monitor. Reportedly, heart rate was in the 140s to 170s yesterday when she went to walk- in clinic. She was started on lisinopril for slightly elevated blood pressure. EMS reports her heart rate was 140 for a couple seconds, otherwise has been in the 80s. She denies any real chest discomfort with this, shortness of breath, fever, weakness, numbness, abdominal pain, rash, or any other concerns. She states for the past days she has had numerous episodes of nonbloody nonbilious vomiting and nonbloody diarrhea as well which is new. Otherwise denying any other acute complaints. LMP was 1 week ago. Allergies and Home Medications Allergies Coded Allergies: No Known Drug Allergies (Unverified , 04/24/19) Patient Home Medication List Home Medication List Reviewed: Yes Dicyclomine HCl (Dicyclomine HCl) 10 Mg Capsule, 10 MG PO Q6H PRN for abdominal pain/nausea Prescribed by: SAMIRA SHEEHAN on 02/24/21 1508 Pantoprazole Sodium (Pantoprazole Sodium) 40 Mg Tablet.dr, 40 MG PO DAILY Prescribed by: SAMIRA SHEEHAN on 02/24/21 1508 Review of Systems Review of Systems Constitutional: No fever EENTM: No Blurred Vision Respiratory: Denies Cough Cardiovascular: Denies Chest Pain; Palpitations Gastrointestinal: No Symptoms Reported Genitourinary: No Symptoms Reported Musculoskeletal: no symptoms reported Skin: no symptoms reported Psychiatric/Neurological: No Symptoms Reported Endocrine: No Symptoms Reported Hematologic/Lymphatic: No Symptoms Reported All Other Systems Reviewed Negative Unless Noted: Yes Past Omxzltx-Nvdpro-Dhgmjy Hx Patient Social History Tobacco Use?: Yes Seasonal Allergies Seasonal Allergies: No Past Medical History Surgeries: Yes Section Respiratory: No Cardiac: No Neurological: No Genitourinary: No Gastrointestinal: No Musculoskeletal: No Endocrine: No HEENT: No Cancer: No Psychosocial: No Integumentary: No Blood Disorders: No Physical Exam Vital Signs Vital Signs - First Documented 04/12/22 07:38 Temp 36.7 Pulse 95 Resp 16 B/P (MAP) 132/76 (94) Pulse Ox 99 O2 Delivery Room Air Capillary Refill : Height, Weight, BMI Height: '" Weight: lbs. oz. kg; 25.00 BMI Method: General Appearance: No Apparent Distress, WD/WN HEENT: PERRL/EOMI, Normal ENT Inspection, Pharynx Normal Neck: Full Range of Motion, Normal Inspection, Non Tender, Supple Respiratory: Chest Non Tender, Lungs Clear, Normal Breath Sounds, No Accessory Muscle Use, No Respiratory Distress Cardiovascular: Regular Rate, Rhythm, No Edema, Normal Peripheral Pulses Gastrointestinal: Normal Bowel Sounds, Non Tender, Soft Extremity: Normal Capillary Refill, Normal Inspection, Normal Range of Motion, Non Tender, No Calf Tenderness, No Pedal Edema Neurologic/Psychiatric: Alert, No Motor/Sensory Deficits, Normal Mood/Affect Skin: Normal Color, Warm/Dry Lymphatic: No Adenopathy Progress/Results/Core Measures Results/Orders Lab Results Laboratory Tests Test 04/12/22 07:01 04/12/22 07:04 Range/Units Influenza Type A (RT-PCR) Not Detected Not Detecte Influenza Type B (RT-PCR) Not Detected Not Detecte SARS-CoV-2 RNA (RT-PCR) Not Detected Not Detecte White Blood Count 12.6 H 4.3-11.0 10^3/uL Red Blood Count 4.84 3.80-5.11 10^6/uL Hemoglobin 13.7 11.5-16.0 g/dL Hematocrit 40 35-52 % Mean Corpuscular Volume 84 80-99 fL Mean Corpuscular Hemoglobin 28 25-34 pg Mean Corpuscular Hemoglobin Concent 34 32-36 g/dL Red Cell Distribution Width 13.8 10.0-14.5 % Platelet Count 235 130-400 10^3/uL Mean Platelet Volume 10.6 9.0-12.2 fL Immature Granulocyte % (Auto) 1 % Neutrophils (%) (Auto) 75 42-75 % Lymphocytes (%) (Auto) 19 12-44 % Monocytes (%) (Auto) 4 0-12 % Eosinophils (%) (Auto) 1 0-10 % Basophils (%) (Auto) 0 0-10 % Neutrophils # (Auto) 9.5 H 1.8-7.8 10^3/uL Lymphocytes # (Auto) 2.4 1.0-4.0 10^3/uL Monocytes # (Auto) 0.5 0.0-1.0 10^3/uL Eosinophils # (Auto) 0.1 0.0-0.3 10^3/uL Basophils # (Auto) 0.0 0.0-0.1 10^3/uL Immature Granulocyte # (Auto) 0.1 0.0-0.1 10^3/uL Prothrombin Time 13.4 12.2-14.7 SEC INR Comment 1.0 0.8-1.4 Activated Partial Thromboplast Time 28 24-35 SEC Sodium Level 137 135-145 MMOL/L Potassium Level 3.6 3.6-5.0 MMOL/L Chloride Level 104 98-107 MMOL/L Carbon Dioxide Level 22 21-32 MMOL/L Anion Gap 11 5-14 MMOL/L Blood Urea Nitrogen 13 7-18 MG/DL Creatinine 0.62 0.60-1.30 MG/DL Estimat Glomerular Filtration Rate 130 BUN/Creatinine Ratio 21 Glucose Level 140 H 70-105 MG/DL Calcium Level 9.6 8.5-10.1 MG/DL Corrected Calcium 9.4 8.5-10.1 MG/DL Magnesium Level 1.8 1.6-2.4 MG/DL Total Bilirubin 0.6 0.1-1.0 MG/DL Aspartate Amino Transf (AST/SGOT) 14 5-34 U/L Alanine Aminotransferase (ALT/SGPT) 15 0-55 U/L Alkaline Phosphatase 134 40-136 U/L Troponin I < 0.30 <0.30 NG/ML Pro-B-Type Natriuretic Peptide < 5.0 <125.0 PG/ML Total Protein 7.0 6.4-8.2 GM/DL Albumin 4.3 3.2-4.5 GM/DL My Orders Orders - SAROJ LIMA MD Cbc With Automated Diff (04/12/22 07:04) Comprehensive Metabolic Panel (04/12/22 07:04) Magnesium (04/12/22 07:04) Protime With Inr (04/12/22 07:04) Partial Thromboplastin Time (04/12/22 07:04) Influenza A And B By Pcr (04/12/22 07:04) Probnp Fs (04/12/22 07:04) Troponin I Fs (04/12/22 07:04) Chest 1 View Ap/Pa Only (04/12/22 07:04) Covid 19 Inhouse Test (04/12/22 07:04) Ed Iv/Invasive Line Start (04/12/22 07:04) Ns Iv 1000 Ml (Sodium Chloride 0.9%) (04/12/22 07:15) Ondansetron Injection (Zofran Injectio (04/12/22 07:15) Acetaminophen Tablet (Tylenol Tablet) (04/12/22 07:15) Ekg Tracing (04/12/22 07:13) Medications Given in ED Current Medications Medications Dose Ordered Sig/Johny Route Start Time Stop Time Status Last Admin Dose Admin Acetaminophen 1,000 mg ONCE ONCE PO 04/12/22 07:15 04/12/22 07:16 DC 04/12/22 07:14 1,000 MG Ondansetron HCl 4 mg ONCE ONCE IVP 04/12/22 07:15 04/12/22 07:16 DC 04/12/22 07:14 4 MG Vital Signs/I&O 04/12/22 07:38 Temp 36.7 Pulse 95 Resp 16 B/P (MAP) 132/76 (94) Pulse Ox 99 O2 Delivery Room Air Progress Progress Note : Progress Note 21-year-old female presenting for palpitations. ABCs were intact and vitals were stable on presentation. The patient was placed on the media monitor, we frequently reassessed her. She did not have any tachycardia while here. EKG with no acute ischemic changes, she does have marked sinus arrhythmia which is possible she is feeling the change in her heart rate. An IV was placed and basic labs were obtained including cardiac biomarkers. Troponin negative making myocarditis less likely. Symptoms not consistent with ACS, especially given her age. Chest x-ray ordered and interpreted by me showing no obvious pneumonia, no pneumothorax, normal cardiac silhouette. Electrolytes essentially unremarkable. She was given a bolus of IV fluids given the vomiting and diarrhea. Also given nausea medicines. On review of the chart, it appears like she has been here recently for vomiting as well. She does smoke marijuana, its possible this is related as well. I will recommend following up with cardiology as an outpatient and likely Holter monitor placement. Initial ECG Impression Date: Apr 12, 2022 Initial ECG Impression Time: : Initial ECG Rate: 61 Initial ECG Rhythm: Normal Sinus Comment Narrow QRS, normal axis, no significant ST changes or T wave abnormalities, appears similar to prior EKG [facility] [place], [place] NAME: MARGA SIMS [facility] REC#: [id number] PT STATUS: REG ER : 2000 PHYSICIAN: SAROJ LIMA MD ADMIT DATE: 04/12/22/ER FS Draft Date of Exam:04/12/22 CHEST 1 VIEW AP/PA ONLY EXAMINATION: Chest radiograph, portable AP view. DATE: 04/12/2022 7:28 AM INDICATION: 21-year-old female, chest pain. COMPARISON: Chest radiographs February 28, 2022. FINDINGS: Heart size and mediastinal contours are unremarkable. There is no identified pneumothorax. There is no large pleural effusion. There is no identified focal airspace consolidation. IMPRESSION: 1. No identified acute cardiopulmonary abnormality. Dictated on workstation # [id number] Dict: 04/12/22 0729 Trans: 04/12/22 0756 [facility] [id number] Interpreted by: CARMEN SWARTZ MD Electronically signed by: Diagnostic Imaging Diagonstic Imaging: Xray Plain Films/CT/US/NM/MRI: chest Comments On my interpretation no obvious pneumonia, pneumothorax, normal cardiac silhouette on the chest x-ray Departure Impression Primary Impression: Palpitations Disposition: 01 HOME, SELF-CARE Condition: Stable Departure-Patient Inst. Decision time for Depature: 08:06 Referrals: RAZA GAXIOLA MD (PCP/Family) Primary Care Physician Patient Instructions: Palpitations ED Add. Discharge Instructions: Your electrolytes look normal, it does not appear like you are having any type of heart attack or infection. I recommend following up with a derrick follower and discussing potential Holter monitor to monitor your palpitations to see if there is any weird rhythm that your heart is having. Nausea medicines were sent to your pharmacy. Scripts Ondansetron (Ondansetron Odt) 4 Mg Tab.rapdis 4 MG SL Q6H PRN for NAUSEA/VOMITING for 5 Days, #20 TAB Prov: SAROJ LIMA MD 04/12/22 Work/School Note: Work Release Form Date Seen in the Emergency Department: Apr 12, 2022 Return to Work: Apr 13, 2022 Restrictions: Return-No Vomiting(24hrs) SAROJ LIMA MD Apr 12, 2022 07:12
[2022-04-12] MEDS ORDERED: NS IV 1000 ML 1,000 ML IV SCH (07:15)
[2022-04-12] MEDS ORDERED: ACETAMINOPHEN 500 MG TAB (TYLENOL) PO ONE (07:15)
[2022-04-12] MEDS ORDERED: ONDANSETRON 4 MG/2 ML (SDV) Z0FRAN IVP ONE (07:15)
[2022-04-12 07:23] LABS: BASOPHILS % (AUTO) 0 % (0-10); EOSINOPHILS # (AUTO) 0.1 10^3/uL (0.0-0.3); EOSINOPHILS % (AUTO) 1 % (0-10); HEMATOCRIT 40 % (35-52); HEMOGLOBIN 13.7 g/dL (11.5-16.0); LYMPHOCYTES # (AUTO) 2.4 10^3/uL (1.0-4.0); LYMPHOCYTES % (AUTO) 19 % (12-44); MEAN CORPUSCULAR HEMOGLOBIN 28 pg (25-34); MEAN CORPUSCULAR HGB CONC 34 g/dL (32-36); MEAN CORPUSCULAR VOLUME 84 fL (80-99); MEAN PLATELET VOLUME 10.6 fL (9.0-12.2); MONOCYTES # (AUTO) 0.5 10^3/uL (0.0-1.0); MONOCYTES % (AUTO) 4 % (0-12); NEUTROPHILS # (AUTO) 9.5 10^3/uL (1.8-7.8); NEUTROPHILS % (AUTO) 75 % (42-75); PLATELET COUNT 235 10^3/uL (130-400); WHITE BLOOD COUNT 12.6 10^3/uL (4.3-11.0)
[2022-04-12 07:55] LABS: PROTHROMBIN TIME PATIENT 13.4 SEC (12.2-14.7)
[2022-04-12 07:56] LABS: ALANINE AMINOTRANSFERASE 15 U/L (0-55); ALKALINE PHOSPHATASE 134 U/L (40-136); BILIRUBIN,TOTAL 0.6 MG/DL (0.1-1.0); BUN/CREATININE RATIO 21; CALCIUM 9.6 MG/DL (8.5-10.1); CARBON DIOXIDE 22 MMOL/L (21-32); CHLORIDE 104 MMOL/L (98-107); CREATININE SERUM 0.62 MG/DL (0.60-1.30); GFR ESTIMATED 130; GLUCOSE 140 MG/DL (70-105); MAGNESIUM 1.8 MG/DL (1.6-2.4); POTASSIUM 3.6 MMOL/L (3.6-5.0); SODIUM 137 MMOL/L (135-145)
[2022-04-12 07:57] LABS: ALBUMIN 4.3 GM/DL (3.2-4.5)
--- NOTE | 2022-04-12 07:57 | Diagnostic Imaging Report ---
EXAMINATION: Chest radiograph, portable AP view. DATE: 04/12/2022 7:28 AM INDICATION: 21-year-old female, chest pain. COMPARISON: Chest radiographs February 28, 2022. FINDINGS: Heart size and mediastinal contours are unremarkable. There is no identified pneumothorax. There is no large pleural effusion. There is no identified focal airspace consolidation. IMPRESSION: 1. No identified acute cardiopulmonary abnormality. Dictated by: Dictated on workstation # [id number]
[2022-04-12] MEDS ORDERED: ONDA4TAB11 SL (08:08)
[2022-04-12 08:17] VITALS: BP 127/82
== END 2022-04-12 08:20 | disposition home or self-care (01) ==
LOC: EDUNIT# 06:47 → ER FS 06:53
DX: R00.2 Palpitations (principal); R11.2 Nausea with vomiting, unspecified; R19.7 Diarrhea, unspecified; I10 Essential (primary) hypertension; Z20.822 Contact with and (suspected) exposure to COVID-19; Z28.310 Unvaccinated for COVID-19
CPT/HCPCS: 36415; 71045; 80053; 83735; 83880; 84484; 85025; 85610; 85730; 87636; 93005

== ENCOUNTER 2022-04-18 15:54 | Emergency (ER) | payer MEDICAID ==
[~2022-04-18 15:54] MED LIST changes: +ONDA4TAB11 SL
[2022-04-18] MEDS ORDERED: NS IV 1000 ML 1,000 ML IV SCH (16:00)
--- NOTE | 2022-04-18 16:02 | ED Cardiac General ---
History of Present Illness General Chief Complaint: Chest Pain Stated Complaint: CHEST PAIN Source: patient Exam Limitations: no limitations History of Present Illness Date Seen by Provider: Apr 18, 2022 Time Seen by Provider: 15:50 Initial Comments 21-year-old female presents for palpitations and lightheadedness. She states if she gets up to do anything her heart rate elevates causing her some lightheadedness. Overall she has been dealing with this for 2 to 3 months. She does have a director of cardiac rehabilitation in place and is supposed to follow-up in a week for further evaluation with cardiology. She does get some burning in her chest when her heart rate is elevated. No nausea vomiting or diaphoresis. She has had no syncopal or presyncopal episodes. No family history of sudden cardiac . She is asymptomatic upon arrival but states she had a "spell" prior to arrival. He denies any fevers chills cough abdominal pain, changes in bowel or bladder habits. Denies that she could be . She has cut caffeine out of her diet altogether. She also states she does not take her Or other [id number] supplements. No new medications Allergies and Home Medications Allergies Coded Allergies: No Known Drug Allergies (Unverified , 04/24/19) Patient Home Medication List Home Medication List Reviewed: Yes Dicyclomine HCl (Dicyclomine HCl) 10 Mg Capsule, 10 MG PO Q6H PRN for abdominal pain/nausea Prescribed by: SAMIRA SHEEHAN on 02/24/21 1508 Ondansetron (Ondansetron Odt) 4 Mg Tab.rapdis, 4 MG SL Q6H PRN for NAUSEA/VOMITING Prescribed by: SAROJ LIMA on 04/12/22 0808 Pantoprazole Sodium (Pantoprazole Sodium) 40 Mg Tablet.dr, 40 MG PO DAILY Prescribed by: SAMIRA SHEEHAN on 02/24/21 1508 Review of Systems Review of Systems Constitutional: dizziness EENTM: No Symptoms Reported Respiratory: No Symptoms Reported Cardiovascular: Chest Pain, Lightheadedness Gastrointestinal: No Symptoms Reported Genitourinary: No Symptoms Reported Musculoskeletal: no symptoms reported Skin: no symptoms reported Psychiatric/Neurological: No Symptoms Reported Endocrine: No Symptoms Reported Hematologic/Lymphatic: No Symptoms Reported Past Pzfogpx-Nxqpvm-Lenmap Hx Patient Social History Tobacco Use?: No Use of E-Cig and/or Vaping dev: No Substance use?: No Alcohol Use?: No Seasonal Allergies Seasonal Allergies: No Past Medical History Surgeries: Yes Section Respiratory: No Cardiac: No Neurological: No Genitourinary: No Gastrointestinal: No Musculoskeletal: No Endocrine: No HEENT: No Cancer: No Psychosocial: No Integumentary: No Blood Disorders: No Family Medical History Reviewed Nursing Family Hx No Pertinent Family Hx Physical Exam Vital Signs Vital Signs - First Documented 04/18/22 15:54 Temp 36.8 Pulse 86 Resp 15 B/P (MAP) 130/80 (97) Pulse Ox 100 O2 Delivery Room Air Capillary Refill : Height, Weight, BMI Height: '" Weight: lbs. oz. kg; 23.00 BMI Method: General Appearance: No Apparent Distress, WD/WN HEENT: Normal ENT Inspection, Pharynx Normal Neck: Full Range of Motion, Normal Inspection, Non Tender, Supple Respiratory: Chest Non Tender, Lungs Clear, Normal Breath Sounds, No Accessory Muscle Use, No Respiratory Distress Cardiovascular: Regular Rate, Rhythm, No Edema, No Gallop, No JVD, No Murmur, Normal Peripheral Pulses Gastrointestinal: Normal Bowel Sounds, No Organomegaly, No Pulsatile Mass, Non Tender, Soft Extremity: Normal Capillary Refill, Normal Inspection, Normal Range of Motion, Non Tender, No Calf Tenderness Neurologic/Psychiatric: Alert, Oriented x3, Normal Mood/Affect Skin: Normal Color, Warm/Dry Progress/Results/Core Measures Results/Orders Lab Results Laboratory Tests Test 04/18/22 15:50 Range/Units White Blood Count 10.5 4.3-11.0 10^3/uL Red Blood Count 4.88 3.80-5.11 10^6/uL Hemoglobin 13.9 11.5-16.0 g/dL Hematocrit 41 35-52 % Mean Corpuscular Volume 83 80-99 fL Mean Corpuscular Hemoglobin 29 25-34 pg Mean Corpuscular Hemoglobin Concent 34 32-36 g/dL Red Cell Distribution Width 13.3 10.0-14.5 % Platelet Count 233 130-400 10^3/uL Mean Platelet Volume 11.0 9.0-12.2 fL Immature Granulocyte % (Auto) 1 % Neutrophils (%) (Auto) 59 42-75 % Lymphocytes (%) (Auto) 31 12-44 % Monocytes (%) (Auto) 5 0-12 % Eosinophils (%) (Auto) 3 0-10 % Basophils (%) (Auto) 1 0-10 % Neutrophils # (Auto) 6.2 1.8-7.8 10^3/uL Lymphocytes # (Auto) 3.3 1.0-4.0 10^3/uL Monocytes # (Auto) 0.6 0.0-1.0 10^3/uL Eosinophils # (Auto) 0.3 0.0-0.3 10^3/uL Basophils # (Auto) 0.1 0.0-0.1 10^3/uL Immature Granulocyte # (Auto) 0.1 0.0-0.1 10^3/uL Sodium Level 142 135-145 MMOL/L Potassium Level 3.7 3.6-5.0 MMOL/L Chloride Level 107 98-107 MMOL/L Carbon Dioxide Level 23 21-32 MMOL/L Anion Gap 12 5-14 MMOL/L Blood Urea Nitrogen 17 7-18 MG/DL Creatinine 0.70 0.60-1.30 MG/DL Estimat Glomerular Filtration Rate 126 BUN/Creatinine Ratio 24 Glucose Level 180 H 70-105 MG/DL Calcium Level 9.4 8.5-10.1 MG/DL Corrected Calcium 9.1 8.5-10.1 MG/DL Total Bilirubin 0.2 0.1-1.0 MG/DL Aspartate Amino Transf (AST/SGOT) 13 5-34 U/L Alanine Aminotransferase (ALT/SGPT) 15 0-55 U/L Alkaline Phosphatase 151 H 40-136 U/L Troponin I < 0.30 <0.30 NG/ML Total Protein 6.9 6.4-8.2 GM/DL Albumin 4.4 3.2-4.5 GM/DL My Orders Orders - JAYLIN CASTELLANO DO Cbc With Automated Diff (04/18/22 15:57) Comprehensive Metabolic Panel (04/18/22 15:57) Troponin I Fs (04/18/22 15:57) Ns Iv 1000 Ml (Sodium Chloride 0.9%) (04/18/22 16:00) Ekg Tracing (04/18/22 16:23) Vital Signs/I&O 04/18/22 04/18/22 15:54 16:53 Temp 36.8 36.8 Pulse 86 66 Resp 15 13 B/P (MAP) 130/80 (97) 127/76 Pulse Ox 100 99 O2 Delivery Room Air Room Air Comment sinus rhythm at 65 bpm. normal intervals, normal axis. No st or t wave abnormalities, no ectopy, no STEMI. Departure Communication (Admissions) CBC shows no anemia. chemisty shows no acidosis, renal failure, electrolyte abnormality. Normal renal function. Trop negative. She has sinus rhythm with no tachycardia here. She does have a heart monitor in place and has follow up with cardiology next week. No indication of emergent medical condition at this time. Impression Primary Impression: Chest pain Qualified Codes: R07.9 - Chest pain, unspecified Additional Impression: Palpitations Disposition: HOME, SELF-CARE Condition: Stable Departure-Patient Inst. Referrals: RAZA GAXIOLA MD (PCP/Family) Primary Care Physician Patient Instructions: Palpitations, Chest Pain (DC) Add. Discharge Instructions: There is no indication of emergent medical condition. Continue to follow up with your carton stapler. Return to the ER for any severe concerns. All discharge instructions reviewed with patient and/or family. Voiced unders tanding. JAYLIN CASTELLANO DO Apr 18, 2022 16:02
[2022-04-18 16:14] LABS: BASOPHILS # (AUTO) 0.1 10^3/uL (0.0-0.1); BASOPHILS % (AUTO) 1 % (0-10); EOSINOPHILS # (AUTO) 0.3 10^3/uL (0.0-0.3); EOSINOPHILS % (AUTO) 3 % (0-10); HEMATOCRIT 41 % (35-52); HEMOGLOBIN 13.9 g/dL (11.5-16.0); LYMPHOCYTES # (AUTO) 3.3 10^3/uL (1.0-4.0); LYMPHOCYTES % (AUTO) 31 % (12-44); MEAN CORPUSCULAR HEMOGLOBIN 29 pg (25-34); MEAN CORPUSCULAR HGB CONC 34 g/dL (32-36); MEAN CORPUSCULAR VOLUME 83 fL (80-99); MONOCYTES # (AUTO) 0.6 10^3/uL (0.0-1.0); MONOCYTES % (AUTO) 5 % (0-12); NEUTROPHILS # (AUTO) 6.2 10^3/uL (1.8-7.8); NEUTROPHILS % (AUTO) 59 % (42-75); PLATELET COUNT 233 10^3/uL (130-400); WHITE BLOOD COUNT 10.5 10^3/uL (4.3-11.0)
[2022-04-18 16:37] LABS: BUN/CREATININE RATIO 24; CARBON DIOXIDE 23 MMOL/L (21-32); CHLORIDE 107 MMOL/L (98-107); GFR ESTIMATED 126; POTASSIUM 3.7 MMOL/L (3.6-5.0); SODIUM 142 MMOL/L (135-145)
[2022-04-18 16:38] LABS: ALANINE AMINOTRANSFERASE 15 U/L (0-55); ALBUMIN 4.4 GM/DL (3.2-4.5); ALKALINE PHOSPHATASE 151 U/L (40-136); BILIRUBIN,TOTAL 0.2 MG/DL (0.1-1.0); CALCIUM 9.4 MG/DL (8.5-10.1); GLUCOSE 180 MG/DL (70-105); TOTAL PROTEIN 6.9 GM/DL (6.4-8.2)
[2022-04-18 16:53] VITALS: BP 127/76
== END 2022-04-18 17:04 | disposition home or self-care (01) ==
LOC: EDUNIT# 15:54 → ER FS 15:56
DX: R07.9 Chest pain, unspecified (principal); R00.2 Palpitations; Z28.310 Unvaccinated for COVID-19
CPT/HCPCS: 36415; 80053; 84484; 85025; 93005